=== PATIENT | female | born 1965 | race Caucasian/White ===

== ENCOUNTER 2020-05-12 10:35 | Observation (INO) ==
[2020-05-12] MEDS ORDERED: Isovue-370 500 ML BOTTLE IVP ONE (10:54)
[2020-05-12 11:16] LABS: Basophils % 0.5 %; Eosinophils # 0.1 K/mcL (0.0-0.6); Eosinophils % 1.7 %; Hematocrit 38.8 % (35.3-44.9); Hemoglobin 12.4 g/dL (11.5-15.4); Immature Granulocytes % 0.2 % (0-4); Lymphocytes # 2.6 K/mcL (0.6-4.6); Lymphocytes % 43.9 %; Mean Corpuscular Hemoglobin 28.8 pg (28.0-33.3); Mean Platelet Volume 11.1 fL (9.4-12.4); Monocytes # 0.4 K/mcL (0.0-1.3); Monocytes % 7.5 %; Neutrophils # 2.7 K/mcL (1.6-8.9); Platelet Count 289 K/mcL (140-400); Red Blood Count 4.31 M/mcL (3.82-4.97); Red Cell Distribution Width 13.3 % (11.5-14.5); Segmented Neutrophils % 46.2 %; White Blood Count 5.9 K/mcL (4.3-11.1)
[2020-05-12 11:28] LABS: Bilirubin,Urine Negative (Negative); Blood,Urine Negative (Negative); Clarity,Urine Clear (Clear); Color,Urine Light-Yellow (Yellow); Glucose,Urine (UA) Normal (Normal); Ketones,Urine Negative (Negative); Leukocyte Esterase,Urine Negative (Negative); Nitrite,Urine Negative (Negative); Protein,Urine Negative (Neg-Trace); Specific Gravity,Urine 1.014 (1.010-1.025); Urobilinogen,Urine Normal (Normal)
[2020-05-12 11:37] LABS: Magnesium 2.4 mg/dL (1.6-2.6); Phosphorous 2.6 mg/dL (2.7-4.5)
[2020-05-12 11:38] LABS: BUN/Creatinine Ratio 27 (6-26); Blood Urea Nitrogen 18 mg/dL (6-20); Calcium 9.1 mg/dL (8.6-10.3); Carbon Dioxide 27 mEq/L (23-29); Chloride 105 mEq/L (98-107); Glucose 112 mg/dL (70-105); Osmolality,Calculated 295 (280-300); Potassium 3.9 mEq/L (3.5-5.1); Sodium 141 mEq/L (136-145); Troponin I < 0.03 ng/mL (< 0.04); eGFR For African Americans > 60 (> 60); eGFR For Non-African Americans > 60 (> 60)
[2020-05-12] MEDS ORDERED: Aspirin 325 MG TABLET PO ONE (12:59)
[2020-05-12] MEDS ORDERED: Melatonin 3 MG TABLET PO PRN (14:38)
[2020-05-12] MEDS ORDERED: Mag Hydrox/Al Hydrox/Simeth 30 ML UDC PO PRN (14:38)
[2020-05-12] MEDS ORDERED: Ondansetron ODT 4 MG TAB.RAPDIS SL PRN (14:38)
[2020-05-12] MEDS ORDERED: Naloxone 0.4 MG/ML INJ IVP PRN (14:38)
[2020-05-12] MEDS ORDERED: MOM Conc 10 ML UD.LIQ PO PRN (14:38)
[2020-05-12] MEDS ORDERED: Perflutren Lipid Microsphere 1.3 ML in 0.9 % Sodium Chloride 8.7 ML IVP PRN (17:03)
[2020-05-13 00:57] LABS: Hematocrit 39.5 % (35.3-44.9); Hemoglobin 12.5 g/dL (11.5-15.4); Mean Corpuscular HGB Conc 31.6 g/dL (31.6-35.5); Mean Corpuscular Hemoglobin 28.8 pg (28.0-33.3); Mean Platelet Volume 11.2 fL (9.4-12.4); Platelet Count 284 K/mcL (140-400); Red Blood Count 4.34 M/mcL (3.82-4.97); Red Cell Distribution Width 13.5 % (11.5-14.5); White Blood Count 6.1 K/mcL (4.3-11.1)
[2020-05-13 01:17] LABS: Alanine Aminotransferase 13 Units/L (7-52); Albumin 3.9 g/dL (3.5-5.7); Albumin/Globulin Ratio 1.4 (1.1-2.2); Alkaline Phosphatase 50 Units/L (34-104); Aspartate Amino Transferase 14 Units/L (13-39); BUN/Creatinine Ratio 26 (6-26); Bilirubin,Total 0.4 mg/dL (0.3-1.0); Blood Urea Nitrogen 17 mg/dL (6-20); Calcium 8.8 mg/dL (8.6-10.3); Carbon Dioxide 26 mEq/L (23-29); Chloride 108 mEq/L (98-107); Chol/HDL Ratio 4.1 (0-4.9); Cholesterol 178 mg/dL (< 200); Globulin 2.8 g/dL (2.4-3.5); Glucose 95 mg/dL (70-105); HDL Cholesterol 43 mg/dL (40-59); LDL Cholesterol,Calculated 105 mg/dL (< 100); Osmolality,Calculated 295 (280-300); Potassium 3.7 mEq/L (3.5-5.1); Sodium 142 mEq/L (136-145); Total Protein 6.7 g/dL (6.4-8.9); Triglycerides 150 mg/dL (< 150); eGFR For African Americans > 60 (> 60); eGFR For Non-African Americans > 60 (> 60)
[2020-05-13] MEDS ORDERED: *HR* Enoxaparin 40 MG/0.4 ML SYRINGE SQ SCH (06:00)
[2020-05-13] MEDS ORDERED: Aspirin Enteric Coated 81 MG Tablet PO SCH (09:00)
[2020-05-13] MEDS ORDERED: Valsartan 80 MG TABLET PO SCH (09:00)
[2020-05-13] MEDS ORDERED: hydroCHLOROthiazide 25 MG TABLET PO SCH (09:00)
[2020-05-13] MEDS ORDERED: Metoprolol XL (24 HR) Succ 25 MG TAB.ER.24H PO SCH (15:00)
[2020-05-13 15:43] VITALS: BP 112/75
== END 2020-05-13 18:10 | disposition home or self-care (01) ==
LOC: EMEROOARM 10:35 → 3BNU 10:35 → SUATTDRO 14:44 → 3BNU 15:37
PROVIDERS: ADMIT Internal Medicine; ATTEND Nurse Practitioner